=== PATIENT | female | born 1990 | race Caucasian/White ===

== ENCOUNTER 2017-07-08 10:00 | Inpatient (IN) | payer MEDICAID ==
[~2017-07-08] VITALS: Ht 152.4 cm; Wt 66.8 kg
[2017-08-21] VITALS (46 sets, daily range): BP systolic 89–148; BP diastolic 55–89; PULSE 64–116; TEMP 98.7–99.9
[2017-08-21] MEDS ORDERED: PRENATAL MVI (07:44)
[2017-08-21] MEDS ORDERED: LEVOXYL0.1 MG PO (07:45)
[2017-08-21] MEDS ORDERED: PREDNISONE10 MG PO (07:47)
[2017-08-21 08:11] LABS: GRAN # 6.4 (1.4-6.5); GRAN % 79.9 % (42.2-75.2); HEMOGLOBIN 13.7 g/dl (12.5-16.0); LYMPH # 1.3 (1.2-3.4); LYMPH % 15.6 % (20.0-51.0); MEAN CELL VOLUME 90 fl (80.0-100.0); MEAN CORPUSCULAR HEMOGLOBIN 30 pg (27.0-31.0); MEAN CORPUSCULAR HGB CONC 33 g/dl (33.0-37.0); MONO # 0.3 (0.1-0.6); PLATELET COUNT 96 K/mm3 (130-400); RED BLOOD COUNT 4.55 M/mm3 (4.10-5.30); REDCELL DISTRIBUTION WIDTH-CV 14.6 % (11.5-14.5)
[2017-08-22 01:38] VITALS: BP 115/70; PULSE 87; TEMP 98
[2017-08-22 05:55] VITALS: BP 103/62; PULSE 77; TEMP 98.5
[2017-08-22 06:51] VITALS: BP 105/70; PULSE 84; TEMP 98.3
[2017-08-22 07:05] LABS: BASO % 0.2 % (0.0-2.0); EOS % 0.2 % (0-4.0); GRAN # 8.5 (1.4-6.5); HEMATOCRIT 38.1 % (37.0-47.0); HEMOGLOBIN 12.6 g/dl (12.5-16.0); LYMPH # 3.4 (1.2-3.4); LYMPH % 27.3 % (20.0-51.0); MEAN CELL VOLUME 91 fl (80.0-100.0); MEAN CORPUSCULAR HEMOGLOBIN 30 pg (27.0-31.0); MEAN CORPUSCULAR HGB CONC 33 g/dl (33.0-37.0); MEAN PLATELET VOLUME 13.4 fl (7.4-10.4); MONO # 0.6 (0.1-0.6); MONO % 4.7 % (1.7-9.3); PLATELET COUNT 82 K/mm3 (130-400); RED BLOOD COUNT 4.19 M/mm3 (4.10-5.30); REDCELL DISTRIBUTION WIDTH-CV 14.7 % (11.5-14.5)
[2017-08-22 12:30] VITALS: BP 114/74; PULSE 96; TEMP 98.1
[2017-08-22 16:06] VITALS: BP 118/73; PULSE 80; TEMP 97.9
== END 2017-08-22 18:45 | disposition home or self-care (01) | DRG 775 ==
LOC: LDR 08-21 06:23 → OB 08-21 06:23 → LDR 08-21 08:55 → OB 08-21 20:15 → LDR 08-26 10:00
PROVIDERS: Obstetrics & Gynecology
PROC: 10E0XZZ Delivery of Products of Conception, External Approach (ICD-10-PCS; principal; 2017-08-21)
PROC: 3E033VJ Introduction of Other Hormone into Peripheral Vein, Percutaneous Approach (ICD-10-PCS; 2017-08-21)
DX: O99.12 Other diseases of the blood and blood-forming organs and certain disorders involving the immune mechanism complicating childbirth (principal); O36.0130 Maternal care for anti-D [Rh] antibodies, third trimester, not applicable or unspecified; D69.6 Thrombocytopenia, unspecified; Z3A.39 39 weeks gestation of pregnancy; Z37.0 Single live birth
CPT/HCPCS: J2210; J2590; J2791; J7120

== ENCOUNTER 2020-07-29 08:34 | Inpatient (IN) | payer MEDICAID ==
[2020-07-29] VITALS (26 sets, daily range): BP systolic 105–157; BP diastolic 57–96; PULSE 69–151; TEMP 97.9–979
[~2020-07-29] VITALS: Ht 154.9 cm; Wt 66.8 kg
[~2020-07-29 08:34] MED LIST: LEVOXYL0.1 MG PO; PREDNISONE10 MG PO; PRENATAL MVI
--- NOTE | 2020-07-29 08:40 | NUR ---
0840- 38.6, G3L2 arrives on unit with complaints of ctx every 5min that started at 0600. Ambulatory to LDR1 with SO. Changes into clean gown. Oriented to room. 0847- EFM explained and placed. VS obtained. Assessment completed. 0852- SVE by this RN , GRACE. Plan of care reviewed with patient and SO who verbalize understanding. 0912- Dr. Vazquez on unit and updated on patient. Orders received. See physician notification. Report given to Alexis Mercedes RN who assumes care of patient at this time.
[2020-07-29] MEDS ORDERED: LEVOXYL0.125 MG PO (08:58)
[2020-07-29] MEDS ORDERED: MACROBID 1100 MG/CAP PO (08:59)
[2020-07-29 10:42] LABS: COLLECTION METHOD CLEAN CATCH
[2020-07-29 10:47] LABS: BASO % 0.2 % (0.0-2.0); EOS % 0.2 % (0-4.0); GRAN # 4.5 (1.4-6.5); GRAN % 73.5 % (42.2-75.2); HEMATOCRIT 39.1 % (37.0-47.0); LYMPH # 1.1 (1.2-3.4); LYMPH % 17.7 % (20.0-51.0); MEAN CELL VOLUME 89 fl (80.0-100.0); MEAN CORPUSCULAR HEMOGLOBIN 30 pg (27.0-31.0); MEAN CORPUSCULAR HGB CONC 33 g/dl (33.0-37.0); MEAN PLATELET VOLUME 12.6 fl (7.4-10.4); MONO # 0.5 (0.1-0.6); MONO % 7.9 % (1.7-9.3); PLATELET COUNT 109 K/mm3 (130-400); RED BLOOD COUNT 4.38 M/mm3 (4.10-5.30); REDCELL DISTRIBUTION WIDTH-CV 14.6 % (11.5-14.5)
--- NOTE | 2020-07-29 11:00 | NUR ---
FHR baseline 125-135bpm. Variable deceleration noted. Patient requests epidural and Letitia Nava notified. 1126: Patient sitting up for epidural and Letitia Nava HAND SIZER at bedside. Difficulty tracing FHR due to maternal position. 1131: Single shot given and patient tolerates well. 1136: Patient repositioned and safety precautions/plan of care discussed. 1245: Patient comfortable with epidural and girard catheter placed and patient tolerates. FHR baseline intermittently decreasing to 115bpm at this time. Patient repositioned and FHR returns to baseline. 1255: Dr. Rose at bedside to assess patient and FHR strip. SVE per physician /0 and attempt of AROM at this time. No fluid noted. Patient denies knowing of water breaking. Will continue to assess. 1345: Recurrent variables noted and Dr. Rose at nurses station reviewing FHR strip. No new orders. Patient repositioned. 1400: SVE- 9-10/100/[address] Rose updated. Patient sitting in lucy position. 1415: SVE-10/100/0 and practice push at this time. Dr. Rose updated and orders to continue to pushing with patient. Patient continues to push with each contractions. Recurrent variables noted and Dr. Rose at nurses station. 1440: Dr. Rose at bedside for delivery. Patient prepped for vaginal delivery. Pericare done. Patient continues to push per Dr. Moore orders. 1446: Spontaneous vaginal delivery of viable female- head followed by body. Fluid noted to be thick meconium at this time. Infant bulb syringed and to patient abdomen, Shania RN assumes care of infant. Cord clamped by physician and cut by FOB. Cord gases obtained and cord blood obtained. 1450: Spontaneous delivery of placenta and pitocin bolus started at 333mU/hr per protocol. Fundal massage done/frim/bleeding WNL. Perineum intact. Pericare done and patient repositioned. Ice pack to perineum and plan of care discussed.
[2020-07-29 11:02] LABS: ALBUMIN 3.7 gm/dL (3.5-5.0); BILIRUBIN,TOTAL 0.3 mg/dL (0.0-1.0); CREATININE, serum 0.56 (0.52-1.25); POTASSIUM 3.4 mmol/L (3.4-5.0); TOTAL PROTEIN 6.9 gm/dL (6.4-8.2)
[2020-07-29 11:04] LABS: MUCOUS Present /lpf; PH 7 (5-8); URINE APPEARANCE Hazy; URINE BACTERIA None Seen /hpf; URINE BILIRUBIN Negative (NEGATIVE); URINE BLOOD 3+ (NEGATIVE); URINE COLOR Amber; URINE GLUCOSE Negative (NEGATIVE); URINE KETONE 1+ (NEGATIVE); URINE LEUKOCYTE ESTERASE Trace (NEGATIVE); URINE NITRATE Negative (NEGATIVE); URINE PROTEIN(semi-quant) 1+ (NEGATIVE); URINE RBC 0-2 /hpf; URINE WBC 0-2 /hpf
[2020-07-30 03:00] VITALS: BP 115/57; PULSE 62; TEMP 97.9
[2020-07-30 08:11] VITALS: BP 109/76; PULSE 74; TEMP 98.1
[2020-07-30] MEDS ORDERED: MOTRIN 800800 MG/TAB PO (08:43)
[2020-07-30 10:25] LABS: HEMATOCRIT 35.8 % (37.0-47.0); HEMOGLOBIN 11.6 g/dl (12.5-16.0); MEAN CELL VOLUME 92 fl (80.0-100.0); MEAN CORPUSCULAR HEMOGLOBIN 30 pg (27.0-31.0); MEAN CORPUSCULAR HGB CONC 32 g/dl (33.0-37.0); MEAN PLATELET VOLUME 13.3 fl (7.4-10.4); PLATELET COUNT 89 K/mm3 (130-400); REDCELL DISTRIBUTION WIDTH-CV 15.2 % (11.5-14.5)
== END 2020-07-30 16:50 | disposition home or self-care (01) | DRG 805 ==
LOC: LDRO 08:34 → LDR 09:17
PROVIDERS: ADMIT Obstetrics & Gynecology
PROC: 10E0XZZ Delivery of Products of Conception, External Approach (ICD-10-PCS; principal; 2020-07-29)
DX: O99.12 Other diseases of the blood and blood-forming organs and certain disorders involving the immune mechanism complicating childbirth (principal); U07.1 COVID-19; Z37.0 Single live birth; O98.52 Other viral diseases complicating childbirth; O77.0 Labor and delivery complicated by meconium in amniotic fluid; O75.3 Other infection during labor; O99.284 Endocrine, nutritional and metabolic diseases complicating childbirth; E03.9 Hypothyroidism, unspecified; O26.893 Other specified pregnancy related conditions, third trimester; Z3A.38 38 weeks gestation of pregnancy
CPT/HCPCS: J2590; J2791; J2795; J7120